=== PATIENT | female | born 1955 | race Caucasian/White ===

== ENCOUNTER 2020-12-13 17:59 | Inpatient (IN) | payer BC, OTHER ==
[~2020-12-13] VITALS: Ht 15.2 cm; Wt 83.9 kg
--- NOTE | 2020-12-13 18:00 | NUR ---
PT. ADMITTED AND CONNECTED TO MECHANICAL VENTILATOR VIA TRACH SIZE #7 PORTEX WITH CUFFED INFLATED. VENT PARAMETERS BELOW PER EMT: AC 15 VT 550 FIO2 30% PEEP +5 VENT PLUGGED INTO RED OUTLET WITH ALARMS ON AND FUNCTIONING. BREATH SOUNDS CLEAR BILATERAL WITH AMBUBAG @ BEDSIDE. Addendum: 12/13/20 at 1815 by KRISTEN GOOD RT Amended: Links added.
--- NOTE | 2020-12-13 18:06 | NUR ---
JAYANT RUSSELL [phone] VACCINATED PFIZER BOTH DOSES IN FEB & B
[2020-12-13 18:47] LABS: SERUM AMMONIA 14 umol/L (11-32)
[2020-12-13 18:50] LABS: BILIRUBIN,URINE NEGATIVE (NEGATIVE); COLOR,URINE YELLOW (YELLOW); LEUKOCYTE ESTERASE ,URINE SMALL (NEGATIVE); NITRITE, URINE POSITIVE (NEGATIVE); PH,URINE 7.5 (5.0-8.0); PROTEIN,URINE NEGATIVE (NEGATIVE); UGLUCOSE NEGATIVE (NEGATIVE); UROBILINOGEN,URINE 0.2 EU/dL (0.2)
[2020-12-13 18:53] LABS: BACTERIA,URINE 4+ /HPF (None Seen); RBC,URINE 0-2 /HPF (0-2); SQUAMOUS EPITHELIAL CELL,UR Few /HPF (None Seen); WBC,URINE TOO NUMEROUS TO COUN /HPF (0-3)
[2020-12-13 19:00] LABS: THYROID STIMULATING HORMONE 107.989 uIU/mL (0.358-3.74)
[2020-12-13 19:03] LABS: BASOPHILS # (AUTO) 0.1 K/uL (0.0-0.2); BASOPHILS % (AUTO) 1.1 % (0.0-2.0); HEMATOCRIT 37 % (33-45); HEMOGLOBIN 11.9 g/dL (11.5-14.8); LYMPHOCYTES # (AUTO) 1.6 K/uL (0.8-4.8); LYMPHOCYTES % (AUTO) 14.9 % (20.0-44.0); MEAN CORPUSCULAR HGB CONC 33 g/dl (31.0-36.0); MEAN CORPUSCULAR VOLUME 91 fL (82-100); MONOCYTES # (AUTO) 0.9 K/uL (0.1-1.30); MONOCYTES % (AUTO) 8.5 % (2.0-12.0); NEUTROPHILS # (AUTO) 7.7 K/uL (1.8-8.9); NEUTROPHILS % (AUTO) 69.5 % (43.0-81.0); PLATELET COUNT (AUTO) 321 K/uL (150-450); RED BLOOD CELL COUNT(AUTO) 4.01 MIL/uL (4.0-5.2); WHITE BLOOD COUNT (AUTO) 11.1 K/uL (4.3-11.0)
--- NOTE | 2020-12-13 19:29 | NUR ---
[facility] CALLED CURTAIN STRETCHER ASSEMBLER PAGED.
[2020-12-13] MEDS ORDERED: CEFTRIAXONE 1GM BAG (ER ONLY) 1 GM/50 ML PIGGYBACK IV ONE (19:30)
[2020-12-13] MEDS ORDERED: CEFTRIAXONE 1GM BAG (ER ONLY) 50 ML IV ONE (19:33)
[2020-12-13 19:49] LABS: ALANINE AMINOTRANSFERASE 100 U/L (12-78); ALBUMIN 3.6 g/dL (3.4-5.0); ALCOHOL, BLOOD < 3 mg/dL (0-0); ALKALINE PHOSPHATASE 130 U/L (46-116); ASPARTATE AMINOTRANSFERASE 41 U/L (15-37); BILIRUBIN,DIRECT 0.1 mg/dL (0.0-0.2); BILIRUBIN,TOTAL 0.3 mg/dL (0.2-1.0); CALCIUM, SERUM 8.8 mg/dL (8.5-10.1); CARBON DIOXIDE 25 mmol/L (21-32); CHLORIDE 102 mmol/L (98-107); GLUCOSE 102 mg/dL (74-106); POTASSIUM 4.1 mmol/L (3.5-5.1); SODIUM SERUM 140 mmol/L (136-145); TOTAL PROTEIN, SERUM 7.8 g/dL (6.4-8.2); UREA NITROGEN, BLOOD 26 mg/dL (7-18)
--- NOTE | 2020-12-13 20:20 | NUR ---
RT NOTE PT TAKEN TO CT AND BACK TO ER #5 W NO COMPLICATIONS. VENT IS PLUGGED INTO RED OUTLET W BMV @ HOB. PT ON CURRENT SETTINGS PER EMT. ALARMS SET AND AUDIBLE.
--- NOTE | 2020-12-13 20:20 | NUR ---
PATIENT TAKEN TO CT
--- NOTE | 2020-12-13 20:30 | NUR ---
RAD AT BEDSIDE
--- NOTE | 2020-12-13 21:07 | NUR ---
BED 117
--- NOTE | 2020-12-13 23:24 | NUR ---
REPORT GIVEN TO STACEY MCPHERSON
[2020-12-14] MEDS ORDERED: diphenhydrAMINE HCL ELIX 25 MG/10 ML UDC GT PRN (01:30)
[2020-12-14] MEDS ORDERED: CEPHALEXIN MONOHYDRATE 250 MG/5 ML BOTTLE GT SCH (01:30)
[2020-12-14 02:00] VITALS: BP 122/87
--- NOTE | 2020-12-14 02:03 | NUR ---
RN NOTES 0100 received from ER via [place] accompanied by ER staff and RT. Awake, nods to yes and no questions. Patient on mechanical ventilator with setting AC 15, TV550, FI02 30%, PEEP 7. Plugged in to red outlet. Alarms audible. Connected to cardiac rehab nurse. Bed bath rendered. Skin check done with STACEY Aguillon, no pressure ulcer but with generalized body rash on trunk, back, and all extremities. Vomited greenish color secretions per ER staff, Javier; also vomited x 1 upon arrival. Secretions suction. Good oral care rendered. Trache care done with dressing, trache collar and inner cannula changed. With telephone orders by Dr. Sosa from ER; transcribed to [facility]. GT patent and intact with min amt of greenish residual. Will not start GT feeding at this time due to vomiting; will notify . Dhillon catheter in place with clear yellow urine output. Kept clean and comfortable . Call light within reach. Will continue to monitor. Addendum: 12/14/20 at 0642 by VIDA VILLALTA RN 0640 No change in condition. Continue on vent; not in distress at this time. Repositioned for comfort.
[2020-12-14 04:00] VITALS: BP 133/76
[2020-12-14] MEDS ORDERED: ALBUTEROL FS 2.5 MG/3 ML VIAL.NEB NEB SCH (06:00)
--- NOTE | 2020-12-14 06:54 | NUR ---
0655 Endorsed to Ramon RN to follow up with Dr. Sosa on cephalexin and rocephin order. GT still clamped, no further vomiting noted.
[2020-12-14] MEDS ORDERED: LEVOTHYROXINE SODIUM 125 MCG TABLET GT SCH (07:30)
[2020-12-14 07:35] LABS: BASOPHILS # (AUTO) 0.1 K/uL (0.0-0.2); BASOPHILS % (AUTO) 0.7 % (0.0-2.0); EOSINOPHILS % (AUTO) 0.6 % (0.0-6.0); HEMATOCRIT 35 % (33-45); HEMOGLOBIN 11.4 g/dL (11.5-14.8); LYMPHOCYTES # (AUTO) 1.5 K/uL (0.8-4.8); LYMPHOCYTES % (AUTO) 10.8 % (20.0-44.0); MEAN CORPUSCULAR HGB CONC 33 g/dl (31.0-36.0); MEAN CORPUSCULAR VOLUME 91 fL (82-100); MONOCYTES # (AUTO) 0.9 K/uL (0.1-1.30); MONOCYTES % (AUTO) 6.2 % (2.0-12.0); NEUTROPHILS # (AUTO) 11.4 K/uL (1.8-8.9); NEUTROPHILS % (AUTO) 81.7 % (43.0-81.0); PLATELET COUNT (AUTO) 300 K/uL (150-450); RED BLOOD CELL COUNT(AUTO) 3.81 MIL/uL (4.0-5.2); WHITE BLOOD COUNT (AUTO) 13.9 K/uL (4.3-11.0)
--- NOTE | 2020-12-14 07:45 | NUR ---
RN MORNING NOTE PT RECEIVED IN BED WITH HOB OF AT 30 DEGREES. PT IS ON MECHANICAL VENTILATOR TRACH #7 WITH SETTINGS AC 15, TV 550, FIO2 30, PEEP 7. PT DOES NOT SHOW SIGNS OF LABORED BREATHING OR RESPIRATORY DISTRESS. PT IS TELE MONITORED SR WITH OCCASIONAL PVCS. PT ANSWERS TO SIMPLE COMMANDS BY NODDING YES OR NO. GTUBE IS IN PLACE AND CLAMPED. NICKERSON CATHETER IS IN PLACE DRAINING URINE BY GRAVITY. RAC 18, RW 20 IS PATENT AND INTACT WITH NO SIGNS OF INFILTRATION. BE IS LOCKED IN THE LOWEST POSITION X2 GUARDRAILS RAISED, CALL SANCHES WITHIN REACH, AND ALL HOSPITAL SAFETY PRECAUTIONS ARE IN PLACE. WILL CONTINUE TO MONITOR THROUGHOUT SHIFT AND ANTICIPATE PATIENT NEEDS.
[2020-12-14 08:00] VITALS: BP 113/69
[2020-12-14 08:04] LABS: CALCIUM, SERUM 8.9 mg/dL (8.5-10.1); CREATININE 0.9 mg/dL (0.6-1.3); POTASSIUM 3.9 mmol/L (3.5-5.1)
[2020-12-14] MEDS: ALBUTEROL FS 2.5 MG/3 ML VIAL.NEB NEB SCH ×3 (08:05→20:09)
--- NOTE | 2020-12-14 08:15 | NUR ---
RN NOTE DR. LOPEZ AT BEDSIDE WITH PT. MD INFORMED OF PT HAVING GREEN COLORED VOMIT. PER MD, HOLD TUBE FEEDING UNTIL ABD CT COMPLETED. PER, , MONITOR PTS SKIN FOR ANY CHANGES. WILL CONTINUE TO MONITOR THROUGHOUT SHIFT.
[2020-12-14] MEDS ORDERED: ONDANSETRON HCL/PF 4 MG/2 ML VIAL IV PRN (09:00)
[2020-12-14] MEDS ORDERED: LEVOFLOXACIN 500 MG /D5W 100ML 500 MG in PREMIX 1 EA IV SCH (09:00)
[2020-12-14] MEDS ORDERED: METO25TA3 GT (09:24)
[2020-12-14] MEDS ORDERED: LORA-259 GT (09:24)
[2020-12-14] MEDS ORDERED: LEVO100T9 GT (09:24)
[2020-12-14] MEDS: ENOXAPARIN SODIUM 40 MG/0.4 ML DISP.SYRIN SQ SCH (09:24)
[2020-12-14] MEDS ORDERED: IPRA4AER IH ×2 (09:24)
[2020-12-14] MEDS ORDERED: DIPH25CA51 GT (09:24)
[2020-12-14] MEDS ORDERED: ATOR40TA GT (09:24)
[2020-12-14] MEDS ORDERED: CEPH500C2 GT (09:24)
[2020-12-14] MEDS: ASCORBIC ACID 500 MG TABLET GT SCH (09:24)
[2020-12-14] MEDS ORDERED: BISA10SU11 RC (09:24)
[2020-12-14] MEDS ORDERED: NA P133E RC (09:24)
[2020-12-14] MEDS ORDERED: [UNRECOGNIZED DRUG - CODE] GT (09:24)
[2020-12-14] MEDS ORDERED: CHLO473M5 MM (09:24)
[2020-12-14] MEDS ORDERED: SACU1TAB GT (09:24)
[2020-12-14] MEDS ORDERED: MAGN400O6 GT (09:24)
[2020-12-14] MEDS ORDERED: SPIR25TA6 GT (09:24)
[2020-12-14] MEDS ORDERED: ACET-868 GT (09:24)
[2020-12-14] MEDS ORDERED: ASCO-352 GT (09:24)
[2020-12-14] MEDS ORDERED: DOCU50LI GT (09:24)
[2020-12-14] MEDS ORDERED: ACET-2605 GT (09:24)
[2020-12-14] MEDS: ACETAMINOPHEN ES 500 MG TABLET GT PRN (09:25)
[2020-12-14] MEDS: DOCUSATE SODIUM LIQ 100 MG/10 ML UDC GT SCH (09:25)
[2020-12-14] MEDS: METOPROLOL TARTRATE 50 MG TABLET GT SCH (09:26)
--- NOTE | 2020-12-14 11:12 | NUR ---
aaron huynh note t 100.0 Tylenol via g tube given and cooling measure provided ,will monitor Addendum: 12/14/20 at 1142 by VNIAY FERGUSON RN started on ivf as ordered
[2020-12-14] MEDS: Potassium Chloride 10 MEQ in IV D5/0.45 NACL 1,000 ML IV PRN ×2 (11:31→21:50)
[2020-12-14 12:00] VITALS: BP 95/58
[2020-12-14] MEDS: MEROPENEM 1 G in IV NS 0.9% 100 ML IV SCH ×2 (12:01→21:45)
--- NOTE | 2020-12-14 13:20 | NUR ---
RN NOTE TEMP REASSESSMENT TEMP REASSESSED: 98.2
--- NOTE | 2020-12-14 15:10 | NUR ---
SVP OPERATIONS NOTE CT ABDOMEN DONE ORDERED
[2020-12-14 16:00] VITALS: BP 100/71
--- NOTE | 2020-12-14 16:38 | NUR ---
MANAGER MEDICAID NOTE CT ABDOMEN NOT RESULT YET ,WILL F\U
--- NOTE | 2020-12-14 17:57 | NUR ---
telecasting engineer note per dr ozuna ok to start g tube feeding and ok to have hida scan , called to tele phone consent obtained
[2020-12-14] MEDS ORDERED: OSMOLITE 1.2 CAL 1,000 ML LIQUID GT PRN (18:00)
--- NOTE | 2020-12-14 18:31 | NUR ---
telesales professional note patient become restless and remove all lines and trach tube , called dr sulma atkinson to place soft restrain , called son Bret atkinson to place soft restrain , will monitor
--- NOTE | 2020-12-14 18:40 | NUR ---
telemarketing supervisor note g tube feeding started as ordered keep hob elevated at all time
--- NOTE | 2020-12-14 18:50 | NUR ---
PT IS LYING IN BED AND RESTING WITH HOB 30 DEGREES. PT IS ON MECHANICAL VENTILATOR TRACH #7 WITH SETTINGS AC 15, TV 550, FIO2 30, PEEP 7. PT DOES NOT SHOW SIGNS OF LABORED BREATHING OR RESPIRATORY DISTRESS. PT IS TELE MONITORED SR WITH OCCASIONAL PVCS. PT ANSWERS TO SIMPLE COMMANDS BY NODDING YES OR NO. GTUBE IS IN PLACE WITH POSITIVE PLACEMENT 30ML/HR. NICKERSON CATHETER IS IN PLACE DRAINING URINE BY GRAVITY OUTPUT 200ML THIS SHIFT. RAC 18, RW 20 IS PATENT AND INTACT WITH NO SIGNS OF INFILTRATION. BED IS LOCKED IN THE LOWEST POSITION X2 GUARDRAILS RAISED, CALL SANCHES WITHIN REACH, AND ALL HOSPITAL SAFETY PRECAUTIONS ARE IN PLACE. ALL PT NEEDS WERE MET. WILL ENDORSE TO ARSON AND BOMB INVESTIGATOR NURSE FOR LAURIE.
--- NOTE | 2020-12-14 19:00 | NUR ---
RN OPENING NOTES RECEIVED REPORT FROM MORNING NURSE. PATIENT IN BED RESTLESS TRYING TO REMOVE HER TRACH AND NICKERSON. SOFT RESTRAINTS APPLIED ORDERED. WITH TRACHEOSTOMY TUBE PORTEX #7 INTACT CONNECTED TO MV WITH SETTING FOLLOWS AC15,TV550, NJ6347%, PEEP7 TOLERATING WELL SATURATION OF 100%. WITH GT PATENT AND INTACT CONNECTED TO CONTINOUS FEEDING OF OSMOLITE 1.2 @ 30CC/HR. NO GASTRIC RESIDUAL NOTED. WITH NICKERSON CATHETER CONNECTED TO URINE BAG DRAINING WITH YELLOWISH URINE OUTPUT. WITH IV ACCESS AT RAC G#18 AND RW G#20 PATENT FLUSHES WELL, NO INFILTRATION NOTED AT THIS TIME.WITH ONGOING IVF OF D5 O.45 NACL+ 10 MEQ POTASSIUM 1OOO ML @ 100CC/HR. WITH SOFT RESTRAINTS IN PLACE DUE TO PATIENT TRYING TO PULL HER LIFE SAVING DEVICES. VITAL SIGNS TAKEN AND RECORDED.SAFETY MEASURES IN PLACE, HOB ELEVATED, BED ON LOWEST POSITION ANG LOCKED. CALL LIGHT WITHIN REACH. WILL CONTINUE TO CLOSELY MONITOR THE PATIENT
[2020-12-14 20:00] VITALS: BP 120/72
[2020-12-14] MEDS ORDERED: CEFTRIAXONE 1 G in IV D5W 50 ML IV SCH (20:00)
[2020-12-14] MEDS: ATORVASTATIN 40 MG TABLET GT SCH (21:45)
[2020-12-15] VITALS: BP 114/74
[2020-12-15] MEDS: ACETAMINOPHEN ES 500 MG TABLET GT PRN (00:47)
--- NOTE | 2020-12-15 00:50 | NUR ---
RN NOTES PATIENT COMPLAINING OF PAIN 4/10 ACETAMINOPHEN 500 MG GIVEN. WILL CONTINUE TO MONITOR
[2020-12-15] MEDS: ALBUTEROL FS 2.5 MG/3 ML VIAL.NEB NEB SCH ×4 (01:44→19:32)
[2020-12-15 04:00] VITALS: BP 137/71
[2020-12-15] MEDS: MEROPENEM 1 G in IV NS 0.9% 100 ML IV SCH ×3 (04:16→21:09)
[2020-12-15 06:16] LABS: BASOPHILS # (AUTO) 0.1 K/uL (0.0-0.2); BASOPHILS % (AUTO) 0.8 % (0.0-2.0); EOSINOPHILS % (AUTO) 4.9 % (0.0-6.0); HEMATOCRIT 34 % (33-45); HEMOGLOBIN 11.1 g/dL (11.5-14.8); LYMPHOCYTES # (AUTO) 1.4 K/uL (0.8-4.8); LYMPHOCYTES % (AUTO) 11.1 % (20.0-44.0); MEAN CORPUSCULAR HGB CONC 33 g/dl (31.0-36.0); MEAN CORPUSCULAR VOLUME 91 fL (82-100); MONOCYTES # (AUTO) 1.1 K/uL (0.1-1.30); MONOCYTES % (AUTO) 8.7 % (2.0-12.0); NEUTROPHILS # (AUTO) 9.2 K/uL (1.8-8.9); NEUTROPHILS % (AUTO) 74.5 % (43.0-81.0); PLATELET COUNT (AUTO) 263 K/uL (150-450); RED BLOOD CELL COUNT(AUTO) 3.72 MIL/uL (4.0-5.2); WHITE BLOOD COUNT (AUTO) 12.3 K/uL (4.3-11.0)
--- NOTE | 2020-12-15 07:03 | NUR ---
RN CLOSING NOTES PATIENT IN BED, WITH TRACH PORTEX 7 INTACT CONNECTED TO MV WITH PRESCRIBED SETTINGS, WITH GT CLAMPED DUE MEDARDO POSSIBLE HIDA SCAN IN AM. WITH NICKERSON CONNECTED TO UB DRAINING YELLOWISH URINE OUTPUT. WITH IV ACCESS ON RFA G#22 INTACT FLUSHES WELL. WITH ONGOING IVF OF D51/2 NS + 10 MEQ KCL2 1L @100 CC/HR. WITH BILATERAL SOFT RESTRAINTS DUE TO PATIENT FULLING LIFE SUSTAINING DEVICE. ALL DUE MEDS GIVEN. SAFETY MEASURES IN PLACE AT ALL TIMES, HOB ELEVATED, SIDERAILS UP FOR SAFETY, BED ON LOWEST POSITION AND LOCKED, CALL LIGHT WITHIN REACH. ENDORSED.
--- NOTE | 2020-12-15 07:43 | NUR ---
RN OPENING NOTE PATIENT RECEIVED IN BED, AWAKE. PATIENT ON MECHANICAL VENTILATION WITH TRACHEOSTOMY WITH FIO2 OF 20%. PATIENT ON TELE MONITOR. RIGHT SOFT WRIST RESTRAIN IN PLACE, SKIN INTACT, NO REDNESS PRESENT, ORDER TO BE RENEWED AT 1800 TODAY. G TUBE IN PLACE. RIGHT UPPER ARM 22G RUNNING D5 1/2NS WITH 10MEQ KCL RUNNING AT 100CC/HR, LINE PATENT WITH NO SIGNS OF INFILTRATION. BED LOCKED AND IN LOWEST POSITION, CALL LIGHT WITHIN REACH, 3 SIDE RAILS UP, ALL SAFETY MEASURES IMPLEMENTED. WILL CONTINUE TO MONITOR.
[2020-12-15 08:00] VITALS: BP 126/72
[2020-12-15 08:00] LABS: ALBUMIN 3.6 g/dL (3.4-5.0); BILIRUBIN,TOTAL 0.4 mg/dL (0.2-1.0); CALCIUM, SERUM 8.8 mg/dL (8.5-10.1); POTASSIUM 3.4 mmol/L (3.5-5.1); TOTAL PROTEIN, SERUM 7.6 g/dL (6.4-8.2)
[2020-12-15] MEDS: LEVOTHYROXINE SODIUM 125 MCG TABLET GT SCH (08:07)
[2020-12-15] MEDS: ASCORBIC ACID 500 MG TABLET GT SCH (08:07)
[2020-12-15] MEDS: DOCUSATE SODIUM LIQ 100 MG/10 ML UDC GT SCH (08:08)
[2020-12-15] MEDS: ENOXAPARIN SODIUM 40 MG/0.4 ML DISP.SYRIN SQ SCH (08:09)
[2020-12-15] MEDS: METOPROLOL TARTRATE 50 MG TABLET GT SCH (08:22)
[2020-12-15] MEDS: Potassium Chloride 10 MEQ in IV D5/0.45 NACL 1,000 ML IV PRN (08:41)
[2020-12-15] MEDS ORDERED: POTASSIUM CHLORIDE 20 MEQ POWDER PACKET GT ONE (10:30)
--- NOTE | 2020-12-15 10:43 | NUR ---
WOUND CARE CONSULT: PT NOTED TO HAVE RASH TO BACK AND ABDOMEN. PER RN, PT HAD RASH UPON ADMISSION. DEFER TO PMD FOR RASH. RECOMMENDATIONS MADE FOR SKIN PROTECTION INCLUDING FIRST STEP LOW AIRLOSS MATTRESS. MD IN AGREEMENT WITH PLAN OF CARE.
[2020-12-15] MEDS: Z GUARD REMEDY 2 OZ OINT TP SCH (11:00)
[2020-12-15] MEDS ORDERED: BISACODYL SUPP (10 MG) 10 MG/SUPP.RECT SUPP.RECT RC PRN (11:00)
[2020-12-15] MEDS ORDERED: Z GUARD REMEDY 2 OZ OINT TP PRN (11:00)
[2020-12-15] MEDS ORDERED: ACETAMINOPHEN 325 MG TABLET PO PRN (11:00)
[2020-12-15] MEDS ORDERED: MAGNESIUM HYDROXIDE 30 ML UDC GT PRN (11:00)
[2020-12-15] MEDS ORDERED: Medication Not On Formulary EA (Ipratropium/Albuterol Sulfate (Combivent Respimat 20-100 IH PRN (11:00)
[2020-12-15] MEDS ORDERED: NA PHOS,M-B/NA PHOS,DI-BA 1 EA ENEMA RC PRN (11:00)
[2020-12-15] MEDS ORDERED: ALBUTEROL FS 2.5 MG/0.5 ML VIAL.NEB NEB PRN (11:30)
[2020-12-15] MEDS ORDERED: IPRATROPIUM NEB FS 0.5 MG/2.5 ML AMPUL.NEB NEB PRN (11:30)
[2020-12-15 12:00] VITALS: BP 108/74
[2020-12-15] MEDS ORDERED: Medication Not On Formulary EA (Ipratropium/Albuterol Sulfate (Combivent Respimat 20-100 IH SCH (12:00)
[2020-12-15] MEDS: IPRATROPIUM NEB FS 0.5 MG/2.5 ML AMPUL.NEB NEB SCH ×2 (13:42→19:32)
[2020-12-15 16:00] VITALS: BP 130/86
--- NOTE | 2020-12-15 18:49 | NUR ---
RN CLOSING NOTE PATIENT IN BED, AWAKE. PATIENT ON MECHANICAL VENTILATOR WITH TRACHEOSTOMY IN PLACE, NO SIGNS OF LABORED BREATHING AT THIS TIME. TELE MONITOR ON. G TUBE IN PLACE RUNNING OSMOLITE 1.2 AT 30CC/HR. RIGHT UA 22G, PATENT WITH NO SIGNS OF INFILTRATION. BED LOCKED AND IN LOWEST POSITION, 3 SIDE RAILS UP, CALL LIGHT WITHIN REACH, ALL SAFETY MEASURES IMPLEMENTED. WILL ENDORSE TO RN COMPLEX CARE NURSE.
--- NOTE | 2020-12-15 19:11 | NUR ---
RT NOTED RECEIVED PT ON CURRENT VENT SETTINGS ac15 550 30% +7. AMBUBAG NEAR BY. TX GIVEN, SX DONE. PT SHOWED NO S/S OF ACUTE RESPIRATORY DISTRESS. WILL CONTINUE TO MONITOR T/O SHIFT.
[2020-12-15 20:00] VITALS: BP 123/63
--- NOTE | 2020-12-15 20:00 | NUR ---
SUPERVISOR PIPELINES NOTE PT IN BED AWAKE. A/O X 1, MOUTH WORDS. NO SOB, NO DISTRESS OR DISCOMFORT NOTED. DENIES PAIN. ON TELE MONITOR SR HR 84. REMAIN ON VENT TOLERATING THE VENT SETTINGS WELL, GTF OSMOLITE 1.2 LEONID INFUSING AT 30 ML/HR, 0 ML RESIDUAL NOTED. KEPT HOB ELEVATED. PT REMAIN WITH SOFT WRIST RESTRAINTS. STILL TRYING TO REMOVE TUBES. REMINDED PT NOT TO PULL ON TUBES. F/C INTACT AND PATENT. DRAINING YELLOWISH COLOR URINE. SIDE RAILS UP X 3 AND CALL LIGHT WITHIN REACH. VSS. CONTINUE TO MONITOR HER.
[2020-12-15] MEDS: ATORVASTATIN 40 MG TABLET GT SCH (21:11)
[2020-12-15] MEDS ORDERED: ATORVASTATIN 40 MG TABLET GT SCH (22:00)
[2020-12-16] VITALS: BP 117/73
[2020-12-16] MEDS: ALBUTEROL FS 2.5 MG/3 ML VIAL.NEB NEB SCH ×3 (00:30→13:53)
[2020-12-16] MEDS: IPRATROPIUM NEB FS 0.5 MG/2.5 ML AMPUL.NEB NEB SCH ×3 (00:31→13:53)
--- NOTE | 2020-12-16 03:30 | NUR ---
CASH APPLICATION CLERK NOTE BED BATH GIVEN. NO DISTRESS OR DISCOMFORT NOTED. PT DENIES PAIN.
[2020-12-16 04:00] VITALS: BP 109/58
[2020-12-16] MEDS: MEROPENEM 1 G in IV NS 0.9% 100 ML IV SCH ×2 (05:09→12:49)
--- NOTE | 2020-12-16 06:20 | NUR ---
JOURNEYMAN LEVEL ACOUSTIC ANALYST NOTE PT IN BED ASLEEP, NO DISTRESS OR DISCOMFORT NOTED. DENIES PAIN. REPOSITION HER Q2H, KEPT HER DRY AND CLEAN. ALL NEEDS ATTENDED. ON TELE SR. WILL ENDORSE TO DAY SHIFT NURSE FOR CONTINUE TO CARE.
[2020-12-16 06:41] LABS: BASOPHILS # (AUTO) 0.1 K/uL (0.0-0.2); BASOPHILS % (AUTO) 1.1 % (0.0-2.0); EOSINOPHILS % (AUTO) 7.2 % (0.0-6.0); HEMATOCRIT 35 % (33-45); HEMOGLOBIN 11.4 g/dL (11.5-14.8); LYMPHOCYTES # (AUTO) 1.4 K/uL (0.8-4.8); LYMPHOCYTES % (AUTO) 10.7 % (20.0-44.0); MEAN CORPUSCULAR HGB CONC 32 g/dl (31.0-36.0); MEAN CORPUSCULAR VOLUME 92 fL (82-100); MONOCYTES # (AUTO) 0.9 K/uL (0.1-1.30); MONOCYTES % (AUTO) 7.3 % (2.0-12.0); NEUTROPHILS # (AUTO) 9.5 K/uL (1.8-8.9); NEUTROPHILS % (AUTO) 73.7 % (43.0-81.0); PLATELET COUNT (AUTO) 279 K/uL (150-450); RED BLOOD CELL COUNT(AUTO) 3.85 MIL/uL (4.0-5.2); WHITE BLOOD COUNT (AUTO) 12.9 K/uL (4.3-11.0)
[2020-12-16 07:30] LABS: ALBUMIN 3.2 g/dL (3.4-5.0); BILIRUBIN,DIRECT 0.1 mg/dL (0.0-0.2); BILIRUBIN,TOTAL 0.4 mg/dL (0.2-1.0); CALCIUM, SERUM 8.8 mg/dL (8.5-10.1); CREATININE 0.8 mg/dL (0.6-1.3); POTASSIUM 3.5 mmol/L (3.5-5.1); TOTAL PROTEIN, SERUM 7.1 g/dL (6.4-8.2)
[2020-12-16 08:00] VITALS: BP 106/74
--- NOTE | 2020-12-16 08:00 | NUR ---
DIRECTOR BLOOD BANK NOTE PATIENT IN BED WITH TRACH TO VENT SETTING ORDERED SATURATION 100 % AT THIS TIME, WITH SOFT RESTRAIN ORDERED RT FA HL INTACT WITH G TIBE FEEDING ORDERED NO RESIDUAL NORED AT THIS TIME, BED IN LOWERS AND LOCKED POSITION , WILL MONITOR ,KEEP HOB ELEVATED AT ALL TIME
[2020-12-16] MEDS: DOCUSATE SODIUM LIQ 100 MG/10 ML UDC GT SCH (08:19)
[2020-12-16] MEDS: LEVOTHYROXINE SODIUM 125 MCG TABLET GT SCH (08:20)
[2020-12-16] MEDS: ASCORBIC ACID 500 MG TABLET GT SCH (08:20)
[2020-12-16] MEDS: ENOXAPARIN SODIUM 40 MG/0.4 ML DISP.SYRIN SQ SCH (08:23)
[2020-12-16] MEDS: METOPROLOL TARTRATE 50 MG TABLET GT SCH (08:24)
[2020-12-16] MEDS ORDERED: METOPROLOL SUCCINATE 25 MG TAB.SR.24H GT SCH (09:00)
[2020-12-16] MEDS ORDERED: ASCORBIC ACID 500 MG TABLET GT SCH (09:00)
[2020-12-16] MEDS ORDERED: SPIRONOLACTONE 25 MG TABLET GT SCH (09:00)
[2020-12-16] MEDS ORDERED: DOCUSATE SODIUM LIQ 100 MG/10 ML UDC GT SCH (09:00)
[2020-12-16] MEDS ORDERED: METO100T7 GT (11:05)
[2020-12-16] MEDS ORDERED: MERO1VIA23 IV (11:05)
[2020-12-16] MEDS ORDERED: LEVO125T GT (11:05)
--- NOTE | 2020-12-16 11:17 | NUR ---
PHYSICAL SCIENCES INSTRUCTOR NOTE SEEN BY DR DOMINGUEZ UPDATE PATIENT CONDITION, AWARE THAT CANT REMOVE SOFT RESTRAIN ,PATENT STILL TRYING TO REMOVE ALL TUBES AND LINES , PER DR LOPEZ OK TO RENEW RESTRAIN ORDER
[2020-12-16] MEDS: Z GUARD REMEDY 2 OZ OINT TP SCH (11:28)
[2020-12-16 12:17] VITALS: BP 132/87
--- NOTE | 2020-12-16 14:20 | NUR ---
telegraph office route aide note received call from margaret atkinson to hold g tube feeding , will do Claudia scan soon ,called family so aand LEFT A MESSAGE
--- NOTE | 2020-12-16 15:30 | NUR ---
television announcer note per dr sulma atkinson to transfer to acute hospital , no need hida scan here, will do at [facility], spoke martell corea from [facility] insurance stated that will be arrange hida at [facility] center
[2020-12-16 16:00] VITALS: BP 126/71
--- NOTE | 2020-12-16 16:17 | NUR ---
report given to nico [phone].
--- NOTE | 2020-12-16 16:32 | NUR ---
telecommunicator supervisor note per case worker and dr sulma atkinson to transfer to [facility] Shiva curtis notified
--- NOTE | 2020-12-16 18:44 | NUR ---
hida scan was canceled by doctor. tech:tatiana
--- NOTE | 2020-12-16 18:57 | NUR ---
television antenna installer note ambulance arrived ,report given to ambulance crew,all discharge form given to ambulance crew belonging checked only blanket patient has ,given to ambulance crew, new h[facility] rt hand donald 2o inserted by rn from ambulance team ,tele removed, Dhillon cath emptied , went to [facility] with stable condition
== END 2020-12-16 18:35 | disposition short-term general hospital (02) | DRG 871 ==
LOC: ER 18:29 → TELE-TD 22:35 → TELE1 12-14 16:34
PROVIDERS: ADMIT Internal Medicine; ATTEND Internal Medicine
PROC: 5A1945Z Respiratory Ventilation, 24-96 Consecutive Hours (ICD-10-PCS; principal; 2020-12-13)
DX: A41.9 Sepsis, unspecified organism (principal); G93.41 Metabolic encephalopathy; J15.9 Unspecified bacterial pneumonia; J96.10 Chronic respiratory failure, unspecified whether with hypoxia or hypercapnia; N39.0 Urinary tract infection, site not specified; Z99.11 Dependence on respirator [ventilator] status; I50.22 Chronic systolic (congestive) heart failure; I42.9 Cardiomyopathy, unspecified; G91.9 Hydrocephalus, unspecified; R13.10 Dysphagia, unspecified; Z93.0 Tracheostomy status; Z93.1 Gastrostomy status; Z20.822 Contact with and (suspected) exposure to COVID-19; Z86.74 Personal history of sudden cardiac arrest; Z95.810 Presence of automatic (implantable) cardiac defibrillator; Z85.850 Personal history of malignant neoplasm of thyroid; Z88.8 Allergy status to other drugs, medicaments and biological substances; Z87.440 Personal history of urinary (tract) infections; R74.01 Elevation of levels of liver transaminase levels; Z86.711 Personal history of pulmonary embolism; E78.5 Hyperlipidemia, unspecified; E89.0 Postprocedural hypothyroidism; I11.0 Hypertensive heart disease with heart failure; Z79.890 Hormone replacement therapy; Z98.2 Presence of cerebrospinal fluid drainage device; Z86.73 Personal history of transient ischemic attack (TIA), and cerebral infarction without residual deficits; K80.20 Calculus of gallbladder without cholecystitis without obstruction; Z91.81 History of falling; Z86.69 Personal history of other diseases of the nervous system and sense organs
CPT/HCPCS: 31720; 36415; 70450-TC; 71045-TC; 80048-TC; 80053-TC; 80076-TC; 81001; 82140-TC; 82962-TC; 84443-TC; 84484-TC; 85025-TC; 85730-TC; 87081-TC; 87086-TC; 87186-TC; 93307-TC; 94002-TC; 94003-TC; 94760-TC; 94799-TC; 99082-TC; A4216; A4623; A7526; G0378; G0480; J0696; J1650; J1956; J2185; J3480; J3490; J7030; J7050; U0003

== ENCOUNTER 2021-09-24 11:23 | Emergency (ER) | payer OTHER ==
[~2021-09-24] VITALS: Ht 172.7 cm; Wt 88.0 kg
[~2021-09-24 11:23] MED LIST: ACET-2605 GT; BISA10SU11 RC; CHLO473M5 MM; DIPH25CA51 GT; DOCU50LI GT; IPRA4AER IH; LEVO125T GT; MAGN400O6 GT; MERO1VIA23 IV; METO100T7 GT; NA P133E RC; SACU1TAB GT; SPIR25TA6 GT; [UNRECOGNIZED DRUG - CODE] GT
--- NOTE | 2021-09-24 11:35 | NUR ---
HEBERT SON ALSO [phone]
--- NOTE | 2021-09-24 11:40 | NUR ---
CAROLINA TUCKER From [facility] "witnessed Seizure/ALOC/nausea/vomiting". On 3 lpm via NC, trach, capped. Connected to the monitor and pulse ox. kept comfortable, will continue to monitor accordingly.
--- NOTE | 2021-09-24 11:45 | NUR ---
COVID SWAB DONE AND SENT TO LAB
[2021-09-24] MEDS ORDERED: VANCOMYCIN 1 GM in IV D5W 250 ML IV ONE (12:00)
[2021-09-24] MEDS ORDERED: IV NS 0.9% 1,000 ML BAG IV ONE ×2 (12:00)
[2021-09-24] MEDS ORDERED: CEFEPIME 1 GM in IV D5W 50 ML IV ONE (12:00)
--- NOTE | 2021-09-24 12:01 | NUR ---
NAI SON [phone]
--- NOTE | 2021-09-24 12:01 | NUR ---
TAKEN TO CT VIA PATRICIA
[2021-09-24 12:07] LABS: BASOPHILS % (AUTO) 0.4 % (0.0-2.0); HEMATOCRIT 39 % (33-45); HEMOGLOBIN 12.7 g/dL (11.5-14.8); LYMPHOCYTES % (AUTO) 11.9 % (20.0-44.0); MEAN CORPUSCULAR HGB CONC 33 g/dl (31.0-36.0); MEAN CORPUSCULAR VOLUME 87 fL (82-100); MONOCYTES # (AUTO) 0.6 K/uL (0.1-1.30); MONOCYTES % (AUTO) 7.2 % (2.0-12.0); NEUTROPHILS % (AUTO) 79.5 % (43.0-81.0); PLATELET COUNT (AUTO) 289 K/uL (150-450); RED BLOOD CELL COUNT(AUTO) 4.45 MIL/uL (4.0-5.2); WHITE BLOOD COUNT (AUTO) 8.8 K/uL (4.3-11.0)
[2021-09-24 12:28] LABS: ALANINE AMINOTRANSFERASE 38 U/L (12-78); ALBUMIN 3.4 g/dL (3.4-5.0); ALKALINE PHOSPHATASE 117 U/L (46-116); ASPARTATE AMINOTRANSFERASE 24 U/L (15-37); BILIRUBIN,DIRECT 0.2 mg/dL (0.0-0.2); BILIRUBIN,TOTAL 0.8 mg/dL (0.2-1.0); CALCIUM, SERUM 8.5 mg/dL (8.5-10.1); CARBON DIOXIDE 25 mmol/L (21-32); CHLORIDE 101 mmol/L (98-107); CREATININE 0.9 mg/dL (0.6-1.3); GLUCOSE 149 mg/dL (74-106); POTASSIUM 4.4 mmol/L (3.5-5.1); SODIUM SERUM 137 mmol/L (136-145); TOTAL PROTEIN, SERUM 7.6 g/dL (6.4-8.2); UREA NITROGEN, BLOOD 25 mg/dL (7-18)
[2021-09-24] MEDS ORDERED: ONDANSETRON HCL/PF 4 MG/2 ML VIAL IV ONE (12:30)
[2021-09-24 12:32] LABS: BILIRUBIN,URINE NEGATIVE (NEGATIVE); COLOR,URINE YELLOW (YELLOW); LEUKOCYTE ESTERASE ,URINE MODERATE (NEGATIVE); NITRITE, URINE POSITIVE (NEGATIVE); PH,URINE 7.5 (5.0-8.0); PROTEIN,URINE TRACE mg/dl (NEGATIVE); UGLUCOSE NEGATIVE (NEGATIVE)
[2021-09-24 12:34] LABS: BACTERIA,URINE Many /HPF (None Seen); RBC,URINE 0-2 /HPF (0-2); SQUAMOUS EPITHELIAL CELL,UR Rare /HPF (None Seen)
[2021-09-24] MEDS ORDERED: ONDANSETRON HCL/PF 4 MG/2 ML VIAL ONE (12:35)
[2021-09-24 12:37] LABS: ACETAMINOPHEN 0 ug/ml (10-30); ALCOHOL, BLOOD < 3 mg/dL (0-0)
--- NOTE | 2021-09-24 12:40 | NUR ---
LAB CALLED LACTIC ACID IS 2.7 STACEY FRANCISCO.
--- NOTE | 2021-09-24 12:49 | NUR ---
ASHLEY WOOD [phone] REQUESTING CLINICALS FAXED TO [phone]
--- NOTE | 2021-09-24 13:34 | NUR ---
FAXED FACESHEET AND CLINICALS TO [facility]
--- NOTE | 2021-09-24 13:49 | NUR ---
REFAXED CLINICALS TO [facility] [phone]
--- NOTE | 2021-09-24 13:57 | NUR ---
DR. MANLEY [facility] SPEAKING WITH DR. TOLEDO AND ACCEPTED PATIENT
--- NOTE | 2021-09-24 15:58 | NUR ---
Gail alexandre in [facility] - 09/24/21 at 1558 by NISA APA UPDATED ETA 20-30 MINUTES
--- NOTE | 2021-09-24 15:58 | NUR ---
APA UPDATED ETA 20-30 MINUTES
[2021-09-24] MEDS ORDERED: ACETAMINOPHEN 650 MG/SUPP.RECT RC ONE ×2 (16:00→16:05)
--- NOTE | 2021-09-24 16:00 | NUR ---
NO BEDS AT [facility]
--- NOTE | 2021-09-24 16:00 | NUR ---
BED AVAILABLE AT [facility] WILL DO ANOTHER PEER TO PEER FOR TRANSFER. PER ASHLEY.
[2021-09-24] MEDS ORDERED: IOHEXOL-350 100 ML VIAL IV ONE (16:36)
[2021-09-24] MEDS ORDERED: IV NS 0.9% 250 ML IV ONE (16:36)
--- NOTE | 2021-09-24 17:08 | NUR ---
ASHLEY CALLED PT ACCEPTED TO [facility] BY DR. CORRIGAN ROOM 2404-1 CALL [phone] FOR REPORT.
--- NOTE | 2021-09-24 17:30 | NUR ---
[facility] PER IRIS
--- NOTE | 2021-09-24 18:09 | NUR ---
report given to wendy huynh at [facility] awaiting transport.
--- NOTE | 2021-09-24 19:50 | NUR ---
REPORT GIVEN TO EMS AT BEDSIDE
[2021-09-24 21:52] VITALS: BP 122/60
== END 2021-09-24 21:52 | disposition short-term general hospital (02) ==
LOC: ER 11:25
DX: A41.9 Sepsis, unspecified organism (principal); N39.0 Urinary tract infection, site not specified; G91.9 Hydrocephalus, unspecified; Z98.2 Presence of cerebrospinal fluid drainage device; E87.2 Acidosis; Z95.810 Presence of automatic (implantable) cardiac defibrillator; E78.5 Hyperlipidemia, unspecified; I11.0 Hypertensive heart disease with heart failure; I50.9 Heart failure, unspecified; Z86.74 Personal history of sudden cardiac arrest; Z93.0 Tracheostomy status; Z95.1 Presence of aortocoronary bypass graft; G40.909 Epilepsy, unspecified, not intractable, without status epilepticus; G93.40 Encephalopathy, unspecified
CPT/HCPCS: 99291; 96365; 96367; 96375; 93005; 71045; 70450; 74174; 84145; 85025; 80048; 87040 ×2; 87086; 83605 ×2; 80076; 81001; 36415; 84484; 85730; 87081; 82962; 87426; 80143; 80320; 80307; J3370; J2405; J7060; J7030 ×2; J7050; J0692; Q9967; C9803; G0480

== ENCOUNTER 2022-02-16 21:42 | Emergency (ER) | payer OTHER ==
[~2022-02-16] VITALS: Ht 172.7 cm; Wt 72.6 kg
--- NOTE | 2022-02-16 22:00 | NUR ---
BIBPA FROM SNF FOR COVID+ PNEUMONIA. PLACED IN BED, AWAKE NOT RESPONDING TO VERBAL-PAINFUL STIMULI, TACHYPNEA RR-28 SATURATING AT 96% WITH O2 4LIT VIA TRACH. TUBE T-P. KNOWN HX OF GEN. MUSCLE WEAKNESS.
--- NOTE | 2022-02-16 22:11 | NUR ---
BARREL WASHER MACHINE AT PT'S BEDSIDE
[2022-02-16] MEDS ORDERED: CYAN50009 GT (22:27)
[2022-02-16] MEDS ORDERED: LEVE250T2 PO (22:27)
[2022-02-16] MEDS ORDERED: METO50TA16 PO (22:27)
[2022-02-16] MEDS ORDERED: LEVO175T7 PO (22:27)
[2022-02-16] MEDS ORDERED: ATOR40TA PO (22:27)
[2022-02-16] MEDS ORDERED: ACETAMINOPHEN ES 500 MG TABLET PO ONE (22:30)
--- NOTE | 2022-02-16 22:39 | NUR ---
BLOOD DRAWN, SWAB FOR COVID19 SENT TO LAB
[2022-02-16] MEDS ORDERED: ACETAMINOPHEN ES 500 MG TABLET ONE (22:54)
[2022-02-16 23:01] LABS: BASOPHILS % (AUTO) 0.3 % (0.0-2.0); EOSINOPHILS % (AUTO) 0.3 % (0.0-6.0); HEMATOCRIT 36 % (33-45); LYMPHOCYTES # (AUTO) 0.8 K/uL (0.8-4.8); LYMPHOCYTES % (AUTO) 8.1 % (20.0-44.0); MEAN CORPUSCULAR HGB CONC 33 g/dl (31.0-36.0); MEAN CORPUSCULAR VOLUME 85 fL (82-100); MONOCYTES # (AUTO) 0.9 K/uL (0.1-1.30); MONOCYTES % (AUTO) 9.4 % (2.0-12.0); NEUTROPHILS % (AUTO) 81.9 % (43.0-81.0); PLATELET COUNT (AUTO) 343 K/uL (150-450); RED BLOOD CELL COUNT(AUTO) 4.29 MIL/uL (4.0-5.2); WHITE BLOOD COUNT (AUTO) 9.8 K/uL (4.3-11.0)
[2022-02-16 23:12] LABS: CALCIUM, SERUM 8.3 mg/dL (8.5-10.1); CARBON DIOXIDE 31 mmol/L (21-32); CHLORIDE 96 mmol/L (98-107); CREATININE 0.8 mg/dL (0.6-1.3); GLUCOSE 121 mg/dL (74-106); POTASSIUM 4.4 mmol/L (3.5-5.1); SODIUM SERUM 134 mmol/L (136-145); UREA NITROGEN, BLOOD 22 mg/dL (7-18)
[2022-02-16 23:26] LABS: ALANINE AMINOTRANSFERASE 21 U/L (12-78); ALBUMIN 2.9 g/dL (3.4-5.0); ALKALINE PHOSPHATASE 97 U/L (46-116); ASPARTATE AMINOTRANSFERASE 36 U/L (15-37); BILIRUBIN,DIRECT 0.3 mg/dL (0.0-0.2); BILIRUBIN,TOTAL 1.1 mg/dL (0.2-1.0); TOTAL PROTEIN, SERUM 7.4 g/dL (6.4-8.2)
[2022-02-17] MEDS ORDERED: FUROSEMIDE 20 MG/2 ML VIAL IV ONE
[2022-02-17] MEDS ORDERED: FUROSEMIDE 20 MG/2 ML VIAL ONE (00:33)
--- NOTE | 2022-02-17 02:25 | NUR ---
WAITLIST FOR: ASHLI, RACHNA, OR CHARLINE LOPEZ PER IRIS
--- NOTE | 2022-02-17 07:02 | NUR ---
PT TOLERATING 5LPM T-PIECE AT 97%. SUCTIONED TRACH. GTUBE INTACT. ADLS DONE; LARGE URINE NOTED. PT KEPT CLEAN AND DRY. REPOSITIONED PT. SAFETY MEASURES IN PLACE.
--- NOTE | 2022-02-17 07:23 | NUR ---
ENDORSED CARE TO LESA IBARRA FOR LAURIE
--- NOTE | 2022-02-17 07:42 | NUR ---
CALL FROM [facility], STILL WORKING ON TRANSFERRING PATIENT TO [place]. WILL CALL US FOR UPDATE
--- NOTE | 2022-02-17 08:18 | NUR ---
CALL BACK FROM [facility], NO BED AT THIS TIME
[2022-02-17] MEDS ORDERED: ENOXAPARIN SODIUM 40 MG/0.4 ML DISP.SYRIN SQ SCH (10:00)
[2022-02-17] MEDS ORDERED: REMDESIVIR (CHARGED) 200 MG, *LOADING DOSE 1 EA in IV NS 0.9% 210 ML IV ONE (10:00)
[2022-02-17] MEDS ORDERED: DEXAMETHASONE SOD PHOSPHATE 4 MG/ML VIAL IV ONE (10:00)
--- NOTE | 2022-02-17 10:09 | NUR ---
RAPID INFLUENZA SWAB COLLECTED AND SENT TO LAB.
[2022-02-17 10:25] LABS: ABG BASE EXCESS 6.6 mmol/L; ABG PCO2 38.4 mmHg (35.0-45.0); ABG PH 7.511 (7.350-7.450); ABG PO2 80.7 mmHg (75.0-100.0); COHb 0.2 % (0.5-1.5); O2Hb 96.1 % (94.0-97.0); SITE, ABG Right Radial; VENT MODE, BG 5Ltbar o2 bleed in
[2022-02-17] MEDS ORDERED: DEXAMETHASONE SOD PHOSPHATE 10 MG/ML VIAL ONE (11:11)
[2022-02-17] MEDS ORDERED: ENOXAPARIN SODIUM 40 MG/0.4 ML DISP.SYRIN SQ ONE (11:11)
[2022-02-17 11:53] LABS: C-REACTIVE PROTEIN 11.7 mg/dL (0.0-0.9)
[2022-02-17] MEDS ORDERED: FUROSEMIDE 40 MG/4 ML VIAL IV SCH (13:30)
--- NOTE | 2022-02-17 15:26 | NUR ---
OMKAR FROM [facility] SPEAKING WITH DR. PENNINGTON.
--- NOTE | 2022-02-17 16:18 | NUR ---
RUPINDER WOOD [phone] CALLED PT ACCEPTED TO [facility] ESPITIA ROOM 429 PLEASE CALL [phone] FOR REPORT. ADDRESS: [facility] [address]. [facility] [id number]
--- NOTE | 2022-02-17 16:48 | NUR ---
RUPINDER CALLED [facility] ETA 30 MINS.
--- NOTE | 2022-02-17 17:20 | NUR ---
REPORT GIVEN TO JUAN DIEGO IBARRA AT [facility]
--- NOTE | 2022-02-17 17:42 | NUR ---
REPORT GIVEN TO [facility] FOR LAURIE
[2022-02-17 18:12] VITALS: BP 102/63
[2022-02-18] MEDS ORDERED: REMDESIVIR (CHARGED) 100 MG in IV NS 0.9% 100 ML IV SCH (10:00)
== END 2022-02-17 18:13 | disposition short-term general hospital (02) ==
LOC: ER 21:44
DX: U07.1 COVID-19 (principal); J96.21 Acute and chronic respiratory failure with hypoxia; Z93.0 Tracheostomy status; E03.9 Hypothyroidism, unspecified; R13.10 Dysphagia, unspecified; E78.5 Hyperlipidemia, unspecified; Z86.74 Personal history of sudden cardiac arrest; G93.1 Anoxic brain damage, not elsewhere classified; Z95.810 Presence of automatic (implantable) cardiac defibrillator; G40.909 Epilepsy, unspecified, not intractable, without status epilepticus; Z93.1 Gastrostomy status; G91.9 Hydrocephalus, unspecified; Z98.2 Presence of cerebrospinal fluid drainage device; Z86.711 Personal history of pulmonary embolism; I11.0 Hypertensive heart disease with heart failure; I50.9 Heart failure, unspecified; Z79.899 Other long term (current) drug therapy; Z99.11 Dependence on respirator [ventilator] status
CPT/HCPCS: 99285; 96374; 71045; 96375; 87426; 96372; 84145; 85025; 80048; 87040 ×2; 83605; 80076; 36415 ×2; 84484; 83880 ×2; 93307; 87804; 85378; 87081; 86140; 36600; C9803; J1100; J1940; J1650